=== PATIENT | female | born 1940 | race Asian ===

== ENCOUNTER 2016-12-10 12:28 | Emergency (ER) | payer MEDICARE, BC ==
[~2016-12-10] VITALS: Ht 157.5 cm; Wt 65.0 kg
[~2016-12-10 12:28] MED LIST: CARV12.579 PO; CIPR500T4 PO; FLUT16SP17 NASAL; GLIP5TAB13 PO; IBAN150T7 PO; LATA2.5D9 BOTH EYES; LEVO100T87 PO; METF500T4 PO; ONDA4TAB35 PO; SIMV20TA PO; [UNRECOGNIZED DRUG - CODE] PO
[2016-12-10 12:32] VITALS: Ht 157.5 cm; Wt 65.0 kg
[2016-12-10 13:08] LABS: URINE BLOOD (Dip) POC 3+ (NEGATIVE)
[2016-12-10] MEDS ORDERED: CEPH-443 PO (13:21)
--- NOTE | 2016-12-10 13:23 | ERD ---
ER Documentation Chief Complaint Date/Time DATE: 12/10/16 TIME: 13:21 Chief Complaint complains of burning on urination HPI Patient is a pleasant 76-year-old female who presents with dysuria and increased urinary frequency that began last night. She states she believes she has a UTI she has had them in the past and this feels similar. She denies any hematuria. Denies any fever, nausea, vomiting, flank pain, or diarrhea. She has not taken any medication for this. She has no other complaints ROS All systems reviewed and are negative except as per history of present illness. Medications Home Meds Active Scripts Cephalexin* (Keflex*) 500 Mg Capsule, 500 MG PO BID for 7 Days, CAP Prov:YVONNE GEIGER PA-C 12/10/16 Ondansetron Hcl* (Zofran* ODT) 4 mg -ODT Tab.disper, 4 MG PO Q6 Y for NAUSEA AND /OR VOMITING, #30 TAB Prov:MICHELLE HILTON MD 01/29/16 Ciprofloxacin Hcl* (Ciprofloxacin Hcl*) 500 Mg Tablet, 500 MG PO BID for 7 Days , TAB Prov:MICHELLE HILTON MD 01/29/16 Reported Medications Simvastatin* (Zocor*) 20 Mg Tablet, 20 MG PO QHS, #30 TAB 01/29/16 Carvedilol* (Carvedilol*) 12.5 Mg Tablet, 12.5 MG PO BID, #60 TAB 01/29/16 Glipizide* (Glipizide*) 5 Mg Tablet, 5 MG PO BID for 90 Days, #270 TAB TAKE 1TAB PO AM, AND 2TAB PO PM 01/29/16 Ibandronate Sodium* (Boniva*) 150 Mg Tablet, 150 MG PO Q28D Y for DIRECTED, TAB 01/29/16 Latanoprost (Xalatan) 2.5 Ml Drops, 1 DROP BOTH EYES QHS, #1 BOTTLE 01/29/16 Levothyroxine Sodium* (Levothyroxine Sodium*) 100 Mcg Tablet, 100 MCG PO BEFORE BREAKFAST, #30 TAB 01/29/16 Fluticasone Propionate* (Fluticasone Propionate* Nasal) 50 Mcg/[place]era - 16 Gm Polv[place]era.susp, 1 SPRAY NASAL BID, #1 BOTTLE TO EACH NOSTRIL 01/29/16 Metformin* (Glucophage*) 500 Mg Tab, 500 MG PO BID 11/15/12 Aspirin (Asperdrink) 81 Mg Tablet.eff, 81 MG PO DAILY 11/15/12 Allergies Allergies: Coded Allergies: No Known Allergy (Verified , 01/29/16) PMhx/Soc History of Surgery: Yes (CATARACT SURGERY, CARPAL TUNNEL SX) Anesthesia Reaction: No Hx Neurological Disorder: No Hx Respiratory Disorders: No Hx Cardiac Disorders: Yes (HTN, HIGH CHOL) Hx Psychiatric Problems: No Hx Miscellaneous Medical Probl: Yes (HYPOTHYROID, BELLS PALSY, DM) Hx Alcohol Use: No Hx Substance Use: No Hx Tobacco Use: No FmHx Family History: No diabetes Physical Exam Vitals Vital Signs Date Time Temp Pulse Resp B/P Pulse Ox O2 Delivery O2 Flow Rate FiO2 12/10/16 12:32 98.3 86 20 140/62 99 Physical Exam General: well developed, well nourished, alert, nontoxic, no distress Head: normocephalic, atraumatic Neck: Supple, nontender, no lymphadenopathy, no midline tenderness Respiratory: Clear to auscaultation bilaterally, speaks in full sentences, no use of accesory muscles or labored breathing, no rales, ronchi, or wheezing Cardiovascular: RRR, No murmurs GI: soft, non tender, non distended, negative murphys sign, negative mcburneys point tenderness, no cva tenderness bilaterally, no rebound or guarding Back: no midline tenderness, no step offs or bony abnormalities, sensation to light touch in tact Results 24 hrs Laboratory Tests Test 12/10/16 13:12 Bedside Urine pH (LAB) 5.5 Bedside Urine Protein (LAB) 3+ Bedside Urine Glucose (UA) Negative Bedside Urine Ketones (LAB) Negative Bedside Urine Blood 3+ Bedside Urine Nitrite (LAB) Negative Bedside Urine Leukocyte Esterase (L 3+ Procedures/MDM 76-year-old female presents with symptoms consistent with UTI and UTI was confirmed on urine dip. Her urine was also sent for culture. She is otherwise well-appearing with stable vital signs. She has no CVA tenderness. I doubt pyelonephritis, kidney stones, or any other intra-abdominal abnormality. She was discharged with Keflex. Recommended this patient follow up with her primary care doctor within 48 hours or return to the emergency room for any worsening of symptoms. However this time I do believe there is suitable for outpatient management. I answered all their questions and they agreed with the plan and were discharged home. Departure Diagnosis: Primary Impression: Cystitis Condition: Stable Patient Instructions: Cystitis Additional Instructions: Call your primary care doctor TOMORROW for an appointment during the next 1-2 days.See the doctor sooner or return here if your condition worsens before your appointment time. YVONNE GEIGER PA-C Dec 10, 2016 13:23
== END 2016-12-10 14:03 | disposition home or self-care (01) ==
LOC: FTE 12:28
DX: N30.90 Cystitis, unspecified without hematuria (principal); I10 Essential (primary) hypertension; E03.9 Hypothyroidism, unspecified; E11.9 Type 2 diabetes mellitus without complications; Z79.82 Long term (current) use of aspirin; Z79.84 Long term (current) use of oral hypoglycemic drugs
CPT/HCPCS: 81003; 87086; 99283

== ENCOUNTER 2017-10-08 | Emergency (ER) | END 2017-10-08 05:51 | disposition home or self-care (01) ==